=== PATIENT | male | born 1960 | race Caucasian/White ===

== ENCOUNTER 2020-05-12 06:56 | Day surgery (SDC) | payer OTHER, SELFPAY ==
[2020-05-05 14:35] VITALS: BMI 33.3
--- NOTE | 2020-05-11 16:06 | EKG12_ITS ---
Test Reason : STEPHANIE Blood Pressure : / mmHG Vent. Rate : 068 BPM Atrial Rate : 068 BPM P-R Int : 206 ms QRS Dur : 120 ms QT Int : 412 ms P-R-T Axes : 119 143 136 degrees QTc Int : 438 ms Suspect arm lead reversal, interpretation assumes no reversal Normal sinus rhythm with sinus arrhythmia Lateral infarct , age undetermined Inferior infarct , age undetermined Recommend Repeat EKG Abnormal ECG Confirmed by HARLEY JACOBSON, GLEN ([id number]), deputy editor in chief MEGA WIGGINS ([id number]) on 05/13/2020 9:39:32 AM Referred By: David Berrios Confirmed By:GLEN SOUZA MD
[2020-05-11 17:09] LABS: Hematocrit 42.9 % (40-54); Hemoglobin 14.8 g/dL (13.0-16.5); Mean Corp Hgb Conc 34.5 g/dL (32-36); Mean Corpuscular Hgb 31.2 pg (27.0-32.0); Mean Corpuscular Volume 90.3 fL (80-94); Mean Platelet Vol. 10.4 fl (6.2-12.0); Platelet Count 289 K/mm3 (150-450); RBC Distribution Width CV 12.6 % (11.6-14.6); RBC Distribution Width SD 41.6 fl (35.1-43.9); Red Blood Count 4.75 M/mm3 (4.6-6.2); White Blood Count 6.4 K/mm3 (4.4-11.0)
--- NOTE | 2020-05-12 07:01 | PCM.HP.BLA ---
Problem List (1) Right inguinal hernia Status: Acute History and Physical Date of Admission: 05/12/20 Intake Visit Reasons: Hernia Chief Complaint: possible right inguinal hernia Wildlife Technician Required: No Is patient in pain?: No Allergies meperidine [From Demerol] Allergy (Intermediate, Verified 05/05/20 14:36) vomiting Medications multivitamin 1 cap PO DAILY 05/05/20 [History] [facility] Medical History Right inguinal hernia (Acute) Surgical History (Updated 05/05/20 @ 14:32 by Leanna Bowman) History of left inguinal hernia repair (Acute) history umbilical herniorrhaphy (Acute) Family History (Updated 05/05/20 @ 14:32 by Leanna Bowman) Father Cancer adrenal gland cancer Social History (Updated 05/05/20 @ 16:[address] David Berrios MD) Smoking Status: Former smoker alcohol intake: current alcohol intake frequency: other Alcohol type: beer, wine details: one drink per week substance use type: does not use HPI HPI HPI: SIMON LONGO, is a 60 M who presents to the office today for surgical consultation regarding a symptomatic right inguinal hernia. He is referred by Dr. Sally Bangura for surgical consultation regarding a right inguinal hernia. The patient actually already has been seen by Dr. Mcguire at [facility] but the patient's plan laparoscopic inguinal repair had to be canceled due to COVID-19. The patient is hoping he can get a repair done before the end of the year because of his deductible. He does heavy lifting and straining. 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 Now it is of note that because of an incarcerated umbilical hernia on May 23, 2014 Dr. John Stanford performed a repair. The repair was done with #1 Surgilon. No mesh was added at that time. The patient has had a remote left inguinal hernia repair done through an open technique. He denies any particular complaints. He denies any recent hospitalizations. He denies history of myocardial infarction or stroke or diabetes. Denies any DVT. He notes that he was 100 pounds heavier. He was consuming a significant amount more beer at that time and went on a self rehabilitation program.. Current body weight is 232 pounds with a BMI of 33.3 HPI HPI HPI: SIMON LONGO, is a 60 M who presents to the office today for ROS General General: No weight change, appetite, fatigue, colon cancer, breast cancer or weakness HEENT HEENT: No difficulty swallowing, eye injury, eye surgery, swollen glands or hoarseness Endo Endocrine: No thyroid disease, diabetes mellitus, thyroid cancer, Hair loss, heat intolerance or cold intolerance Skin Skin: No rash or changing moles Breast Breast: No left breast lump, right breast lump, nipple discharge, breast pain, abnormal mammogram, abnormal US or breast enlargement Musc Musculoskeletal: No back problems, arthritis, rheumatoid arthritis, gout or joint pain Cardio Cardiovascular: No murmur, pacemaker, heart disease, atrial fibrillation, high blood pressure, heart attack, heart stent, palpitations, shortness of breat with exertion or chest pain Psych Psychiatric: No depression, anxiety or hearing voices Resp Respiratory: No shortness of breath, No sleep apnea, No cough, No COPD, No asthma, No emphysema, No wheezing Gastro Gastrointestinal: No abdominal pain, No nausea or vomiting, No diarrhea, No constipation, No blood in stool, No acid reflux, No hemorrhoids, No ulcers, No gallbladder problem, No black,tarry stools Gold Hematologic: No blood thinners, No blood disorders, No bleeding, No anemia, No blood clots Neuro Neurologic: No system reviewed and no additional complaints, except as docu, No as per HPI, No abnormal walking, No abnormal hearing, No abnormal movements, No abnormal speech, No behavioral changes, No burning sensations, No confusion, No seizure-like activity, No unsteadiness, No dizziness, No localized weakness, No frequent falls, No headache(s), No lack of coordination, No loss of vision, No memory loss, No numbness, No other visual disturbances, No radiating pain, No restless legs, No sensory deficit, No fainting, No tingling, No tremor(s), No weakness, No other Exam Const General: cooperative, comfortable, no acute distress Nutritional Appearance: obese Orientation: alert, awake [facility] Head: normal to inspection Eyes General: appearance normal, both eyes and all related structures Chest Breast Palpation: No nipple discharge Resp Effort & Inspection: normal respiratory effort Auscultation: clear to auscultation bilaterally Cardio Rate: regular rate Rhythm: regular rhythm Heart Sounds: no murmurs GI Palpation: soft, no hepatosplenomegaly Other: Well-healed curvilinear incision at the inferior portion of the umbilicus. Nontender. Normal bowel sounds. Not expansile. Other: Well-healed left groin incision solid repair. Testicles are descended bilaterally. Slight fullness of the right cord. Reducible probably direct right inguinal hernia. Musc Cervical Spine: normal cervical lordosis Skin General: no rashes or lesions noted Neuro General: alert, awake Extrem General: no calf tenderness Psych Affect: normal affect Assessment & Plan 1. Hernia K46.9 2. Right inguinal hernia K40.90 Plan I have offered the patient laparoscopic right inguinal herniorrhaphy with mesh. He is aware of the technique, benefit, risk, alternatives. No guarantees of success of been offered. Great care will need to be taken at the umbilical level because of the previous umbilical herniorrhaphy done with suture material. He is aware that his body habitus although he has lost significant weight still puts him at some increased risk. He is very much interested in expediting his surgical care. I appreciate very much the opportunity of assisting with surgical management. We will schedule and proceed as noted. He is very much aware of the COVID-19 pandemic. He is aware that we anticipate that this will be an outpatient surgical procedure. Copy: Dr. Sally Berrios M.D., F.A.C.S. Coding Level of Care Code 43682 Diagnoses Hernia K46.9 Right inguinal hernia K40.90 I have re-examined the patient. There are no clinical changes since date of exam. Procedure Criteria Procedure Type: Elective COVID Risk Discussion: The surgeon/proceduralist and patient have discussed in detail the risk of exposure to and/or potential harm posed by the COVID-19 virus with having a surgery/procedure at this time versus the risk of delaying the surgery/procedure. It is not possible to know either the risk of delaying the surgery or procedure or chance of getting an infection with perfect accuracy, but a joint decision was made between the patient and the surgeon/proceduralist to proceed at this time with the scheduled surgery/procedure as indicated on the consent form.
[2020-05-12 07:21] VITALS: BP 148/93; PULSE 66; RESP 16; TEMP 36.8; O2SAT 98; BMI 32.9
[2020-05-12] MEDS: Lactated Ringers 1,000 ML 100 ML IV (07:48)
[2020-05-12] MEDS: Cefazolin 2 GM in 0.9% Normal Saline 100 ML IV (08:53)
--- NOTE | 2020-05-12 08:57 | DCINST_ITS ---
Discharge Diet: Light diet - advance as tolerated - if you have questions about your diet instructions, please talk to you doctor. Discharge Activity: May Not Drive - for 5-7 days or while taking narcotic pain medicine. May shower in (days): 1 Lifting Restrictions: 10 pounds Call your doctor if your incision/area has: Continuous Slow Oozing, Sudden Increased Bleeding, Increased Pain/ Swelling, Increased Redness, Foul Smelling Discharge Call your doctor if you observe: Fever of 101 or Higher Suture Line Care: Avoid Pulling/Pushing, Avoid Pinching/Bending Additional Dressing/Incision Instructions:: Change or remove dressing in 4 days. Leave steri-strips in place for 1 week. Allergies/Adverse Reactions: Allergies meperidine [From Demerol] Allergy (Intermediate, Verified 05/12/20 07:20) vomiting Medications to take at Discharge multivitamin 1 cap PO DAILY 05/05/20 Primary Care Physician: Sally Bangura MD [Primary Care Provider] - Test Results: Test results from this visit will be discussed in further detail at your follow- up appointment, if applicable. Please Follow Up With: David Berrios MD - [phone] When: Call for appt., phone, virtual, or on site approx. 10 days
[2020-05-12] MEDS: Bupivacaine Mpf 0.5% 30 ML VIAL (09:30)
[2020-05-12] MEDS: Lidocaine 1% (20 ml mdv) 20 ML Vial (09:30)
--- NOTE | 2020-05-12 10:26 | PCM.OPRPT ---
Problem List (1) Right inguinal hernia Status: Acute Report of Operation Date of Procedure: 05/12/20 Pre-Operative Diagnosis: Indirect right inguinal hernia Post-Operative Diagnosis: Same Surgery/Procedure Performed:: Laparoscopic right inguinal herniorrhaphy with Bard 3D max extra-large right mesh. Lot number [id number], reference #[id number]. Expiry date 01/24/2024 Description of Surgical Findings:: Timeout and informed consent was obtained. 60-year-old gentleman was taken to the operating placed supine on the table underwent general endotracheal intubation anesthesia. Ancef 2 g given intravenously. The abdomen sterilely prepped and draped. A supraumbilical vertical incision was created sharp dissection carried down through subtenons tissue with some effort the peritoneum was identified and opened. A Tello catheter was inserted. The abdomen is inflated CO2 to a pressure of 10 mmHg pressure. Inspection was made in the left lower abdomen where I had attempted a 5 mm Visiport. That had not penetrated the posterior fascia. I did do somewhat of a nerve block superior to that under laparoscopic visualization. I placed the trocar under visualization. A 5 mm trocar was placed in the right lower quadrant as well. Under laparoscopic visualization a ileal inguinal nerve block in the right groin was performed. I did this with a combination of 0.5% Marcaine and 1% lidocaine. Having achieved that the peritoneum superior lateral to the internal ring was incised carried medially. The patient had experienced an intentional over 100 pound weight loss. The structures were noted to be very lax. Tediously I did blunt dissection completely inverted the hernia sac. There was some fibrofatty tissue attached to the cord which was inverted as well. Having achieved dissection of the direct indirect and femoral area I 9 placed a extra-large Bard 3D max mesh. It nicely covered the defect area. I secured it superiorly and medially with secure strap. Excellent positioning was achieved. The peritoneum was then approximated to itself with secure strap and hemolock clips. Complete obliteration of the mesh was achieved. The gas was allowed to escape through an antiviral valve. The trochars were removed. The fascia at the umbilicus approximated with simple and [id number] sutures of 0 Nurolon. Good approximation was achieved. Skin edges approximated opted for Monocryl subdermal stitches. Steri-Strips Telfa OpSite dressings applied. Sponge and instrument and needle counts were reported to the surgeon to be correct. Specimens none. Drains none. Blood loss minimal. David Berrios M.D., F.A.C.S. Type of Anesthesia:: General Anesthesiologist: Chester Myrick
[2020-05-12 10:48] VITALS: BP 128/83; BP 143/93; PULSE 82; RESP 16; TEMP 36.1; O2SAT 98
[2020-05-12 10:55] VITALS: BP 128/73; BP 143/93; PULSE 74; RESP 16; O2SAT 99
[2020-05-12 11:00] VITALS: BP 135/85; BP 143/93; PULSE 74; RESP 16; O2SAT 99
[2020-05-12 11:04] VITALS: BP 129/82; BP 143/93; PULSE 69; RESP 16; TEMP 36.3; O2SAT 100
[2020-05-12 12:14] VITALS: BP 140/80; BP 143/93; PULSE 79; RESP 16; TEMP 36.6; O2SAT 97
== END 2020-05-12 12:34 | disposition home or self-care (01) ==
LOC: SDC 06:56 → AC 06:57
PROVIDERS: Anesthesiology; PCP Family Medicine; Referring Provider Surgery; Visit Provider Surgery
PROC: (CPT 49650; principal; 2020-05-12 08:40)
DX: K40.90 Unilateral inguinal hernia, without obstruction or gangrene, not specified as recurrent (principal); Z20.828 Contact with and (suspected) exposure to other viral communicable diseases; E66.9 Obesity, unspecified; Z68.33 Body mass index [BMI] 33.0-33.9, adult; Z87.891 Personal history of nicotine dependence
CPT/HCPCS: 00840; 49650; 36415; 85027; 87426; 93005; C9803; J7120; C1781; J2405